=== PATIENT | female | born 2000 | race Caucasian/White ===

== ENCOUNTER 2021-07-31 01:43 | Outpatient (CLI) | payer MEDICAID ==
[~2021-07-31] VITALS: Ht 175.3 cm; Wt 77.3 kg
[2021-07-31 01:51] VITALS: BP 127/60
== END 2021-07-31 03:30 | disposition home or self-care (01) ==
LOC: LDOP 01:43
PROVIDERS: ATTEND Obstetrics & Gynecology Maternal & Fetal Medicine
DX: O26.893 Other specified pregnancy related conditions, third trimester (principal); R10.9 Unspecified abdominal pain; Z3A.37 37 weeks gestation of pregnancy